=== PATIENT | female | born 1960 | race Caucasian/White ===

== ENCOUNTER 2020-08-05 10:20 | Emergency (ER) | payer SELFPAY ==
[~2020-08-05] VITALS: Ht 162.6 cm; Wt 63.6 kg
--- NOTE | 2020-08-05 11:03 | RAD ---
EXAM: 1. Right knee 4 views. 2. Left ankle 3 views. HISTORY: Fall, pain. COMPARISON: None. FINDINGS: No fractures are appreciated at the right knee. There are tiny osteophytes along the medial compartment. Joint spaces are maintained. There is no joint effusion. No fractures are appreciated at the left ankle. Joint spaces and alignment are maintained. Small ossi cles at the tips of the medial and lateral malleoli are consistent with chronic ligamentous injuries. There is mild soft tissue swelling medially and laterally. IMPRESSION: 1. No fracture. 2. Mild soft tissue swelling medially and laterally at the ankle. Electronically signed by: Malena Harding MD (08/05/2020 11:01 AM) [id number]
--- NOTE | 2020-08-05 11:25 | PHYS DOC ---
Past History Past Medical History: Migraines Past Surgical History: Appendectomy, Hysterectomy Alcohol Use: Occasionally Adult General Chief Complaint Chief Complaint: ANKLE PROBLEM HPI HPI Patient is a 59-year-old female who presents to the emergency room after having a fall. Patient states that she missed a stair and fell hitting her right knee and twisting her left ankle. She did not hit her head. She not lose consciousness. She denies any kind dizziness or syncope. She states that she has this dull aching pain in her ankle. She states that she was unable to put any weight on her ankle due to the pain. She was able to put weight on her right leg. She denies any other injuries. She denies any numbness or tingling in her toes. Review of Systems Review of Systems Complete ROS is negative unless otherwise documented in HPI Allergies Allergies Allergies Coded Allergies Type Severity Reaction Last Updated Verified Penicillins Allergy Severe anaphylactic shock 08/05/20 Yes Physical Exam Physical Exam General: Awake, alert, NAD. Well Nourished, well hydrated. Cooperative HEENT: Atraumatic, EOMI, PERRL, airway patent, moist oral mucosa Neck: Supple, trachea midline Respiratory: CTA bilaterally, normal effort, no wheezing/crackles CV: RRR, no murmur, cap refill <2 GI: Soft, nondistended, nontender, no masses MSK: Right knee: No swelling, no effusion, no deformity. Left ankle: Minimal swelling, 2+ DP pulse, intact range of motion and sensation Skin: Warm, dry, abrasion to right knee Neuro: A&O x3, speech NL, sensory and motor grossly intact, no focal deficits Psych: Normal affect, normal mood, not suicidal or homicidal Current Patient Data Vital Signs Vital Signs Date Time Temp Pulse Resp B/P (MAP) Pulse Ox O2 Delivery O2 Flow Rate FiO2 08/05/20 10:34 97.6 76 16 133/93 (106) 95 Room Air EKG EKG [] Radiology/Procedures Radiology/Procedures [] Heart Score C/O Chest Pain: N/A Risk Factors: Risk Factors: DM, Current or recent (<one month) smoker, HTN, HLP, family history of CAD, obesity. Risk Scores: Risk Factors: DM, Current or recent (<one month) smoker, HTN, HLP, family history of CAD, obesity. Course & Med Decision Making Course & Med Decision Making Pertinent Labs and Imaging studies reviewed. (See chart for details) Patient 59-year-old female with minor injury to the ankle and knee. X-rays were done and are normal. Discussed rice therapy. Patient's test results and vitals while in the ED were fully reviewed and discussed with the patient. Patient is stable and at this time does not need admission to the hospital. We have discussed strict return precautions and the importance of following up with their Primary Care Physician. Patient stated understanding and was given an opportunity to ask any questions. Patient is in agreement with plan. Dragon Disclaimer Dragon Disclaimer This electronic medical record was generated, in whole or in part, using a voice recognition dictation system. Departure Departure: Impression: Primary Impression: Ankle sprain Disposition: HOME / SELF CARE / HOMELESS Condition: STABLE Referrals: PCP,NO (PCP) Patient Instructions: Ankle Sprain ZHANE CHAPA MD Aug 05, 2020 11:25
[2020-08-05 11:30] VITALS: BP 160/89
== END 2020-08-05 11:35 | disposition home or self-care (01) ==
LOC: ER 10:20
DX: S93.402A Sprain of unspecified ligament of left ankle, initial encounter (principal); S80.211A Abrasion, right knee, initial encounter; G43.909 Migraine, unspecified, not intractable, without status migrainosus; Z88.0 Allergy status to penicillin; W10.8XXA Fall (on) (from) other stairs and steps, initial encounter; Y93.89 Activity, other specified; Y92.89 Other specified places as the place of occurrence of the external cause; Y99.8 Other external cause status
CPT/HCPCS: 73564; 73610; 99284